=== PATIENT | male | born 1955 | race Caucasian/White ===

== ENCOUNTER → 2018-12-15 | Outpatient (CLI) | payer OTHER ==
--- NOTE | 2018-12-15 16:06 | Diagnostic Imaging Report ---
PROCEDURE: MRI lumbar spine. TECHNIQUE: Multiplanar, multisequence MRI of the lumbar spine was performed without contrast. INDICATION: Low back pain and bilateral hip pain, greater on the right. The patient also complains of tingling and numbness at the bottom of both feet. COMPARISON: No prior studies are available for comparison. FINDINGS: There is straightening of the normal lumbar lordosis. Minimal retrolisthesis of L5 on S1 is noted. There is a large amount of edema identified within the inferior one-half of the L2 vertebral body. There is some central compression of the inferior endplate of this vertebral body and findings are suggestive of an acute inferior endplate fracture. No retropulsion is seen. Remaining vertebrae show normal stature and normal marrow signal. There is significant degenerative disc disease at the L4-L5 level with complete loss of the disc space with Modic changes in the adjacent endplates. There is variable disc space narrowing and desiccation at the remaining levels. The conus is unremarkable at the L1 level. T12-L1: Central canal is patent. Neuroforamina are patent. L1-L2: Central canal is patent. Neuroforamina are patent. L2-L3: There is some ligamentous thickening. Central canal is widely patent. There is mild bilateral neuroforaminal narrowing due to endplate osteophytes. L3-L4: Central canal is patent. Mild neuroforaminal narrowing due to endplate osteophytes is seen. L4-L5: Broad-based disc/osteophyte complex does narrow the lateral recesses. Central canal is patent. Mild bilateral neuroforaminal narrowing is seen. L5-S1: Central canal is patent. There is mild bilateral neuroforaminal narrowing. Paraspinous tissues are unremarkable. IMPRESSION: 1. Generalized lumbar spondylosis with mild multilevel neuroforaminal and lateral recess narrowing, described level by level above. No central canal stenosis is seen. 2. Findings consistent with acute inferior endplate fracture involving L2 vertebral body with some central compression. No retropulsion is seen. Dictated by: Dictated on workstation # [id number]
== END ==
LOC: RAD 15:09
PROVIDERS: ATTEND Neurological Surgery
DX: M48.061 Spinal stenosis, lumbar region without neurogenic claudication (principal); M47.816 Spondylosis without myelopathy or radiculopathy, lumbar region; M48.07 Spinal stenosis, lumbosacral region
CPT/HCPCS: 72148

== ENCOUNTER 2019-01-22 08:04 | Outpatient (RCR) | payer BC, OTHER | END 2019-03-03 | disposition home or self-care (01) | PROVIDERS: ATTEND Physician Assistant | DX: M51.16 Intervertebral disc disorders with radiculopathy, lumbar region (principal) ==

== ENCOUNTER → 2019-02-10 | Outpatient (CLI) | payer OTHER ==
--- NOTE | 2019-02-10 14:56 | Diagnostic Imaging Report ---
INDICATION: Age-related screening. COMPARISON: None. FINDINGS: AP Spine L1-L4: [BMD (g/cm2): 1.496] [T-Score: 2.1] [Z-Score: 1.8] [BMD Previous: NA] [BMD % Change: NA] LT Hip Neck: [BMD (g/cm2): 0.933] [T-Score: -1.1] [Z-Score: -0.5] LT Hip Total: [BMD (g/cm2):1.005] [T-Score:-0.7] [Z-Score: -0.6] [BMD Previous: NA] [BMD % Change: NA] RT Hip Neck: [BMD (g/cm2):0.914] [T-Score:-1.2] [Z-Score:-0.6] RT Hip Total: [BMD (g/cm2):0.949] [T-score:-1.1] [Z-Score:-1.0] [BMD Previous:NA] [BMD % Change:NA] *Indicates significant change from prior examination based on 95% confidence level. World Health Organization criteria for BMD interpretation classify patients as Normal (T-score at or above -1.0), Osteopenic (T-score between -1.0 and -2.5) or Osteoporotic (T-score at or below -2.5). LIMITATIONS AND MODIFICATION: None. FRACTURE RISK (FRAX SCORE): The ten year probability of (%): Major Osteoporotic Fracture: [9.5] Hip Fracture: [1.2] IMPRESSION: 1. Osteopenia (Low bone mass). 2. Baseline examination. 3. See below National Osteoporosis Foundation guidelines on when to potentially initiate pharmacologic therapy. Based on the National Osteoporosis Foundation Guidelines, pharmacologic treatment should be initiated in any of the following, unless clinical conditions suggest otherwise: * Any patient with prior fragility fracture of the hip or vertebrae. A spine fracture indicates 5X risk for subsequent spine fracture and 2X risk for subsequent hip fracture. * Osteoporosis (T-score <-2.5). * Postmenopausal women and men age 50 and older with low bone mass/osteopenia (T-score between -1.0 and -2.5) by DXA and 10-year major osteoporotic fracture greater than 20% or a 10-year probability of hip fracture greater than 3%. These fracture risks are supplied above in the FRAX score, if applicable. * Clinician judgement and/or patient preferences may indicate treatment for people with 10-year fracture probabilities above or below these levels. Dictated by: Dictated on workstation # [id number]
== END ==
LOC: RAD 11:36
PROVIDERS: ATTEND Physician Assistant
DX: Z13.820 Encounter for screening for osteoporosis (principal); S32.020A Wedge compression fracture of second lumbar vertebra, initial encounter for closed fracture; M85.88 Other specified disorders of bone density and structure, other site
CPT/HCPCS: 77080

== ENCOUNTER → 2020-09-26 | Outpatient (CLI) | payer MEDICARE ==
--- NOTE | 2020-09-26 10:28 | Diagnostic Imaging Report ---
PROCEDURE: CT abdomen and pelvis without contrast. TECHNIQUE: Multiple contiguous axial images were obtained through the abdomen and pelvis without the use of intravenous contrast. Auto Exposure Controls were utilized during the CT exam to meet ALARA standards for radiation dose reduction. INDICATION: Hematuria. FINDINGS: The lung bases are clear. The liver is normal in size without focal lesions. The gallbladder is unremarkable. There is no biliary ductal dilatation. The spleen is normal. The pancreas and adrenal glands are unremarkable. There is a 6 mm stone in the distal right ureter just proximal to the right UVJ. There is no significant hydronephrosis. The aorta is nonaneurysmal. The bowel gas pattern is nonspecific. There is no free air. No ascites. No focal inflammatory changes. No pelvic mass, adenopathy, or free fluid. The bladder is normal. There are degenerative changes in the spine. IMPRESSION: 6 mm stone in the distal right ureter just proximal to the right UVJ without significant hydronephrosis. Diverticular disease without evidence of diverticulitis. No other acute abnormality in the abdomen or pelvis. Dictated by: Dictated on workstation # [id number]
== END ==
LOC: RAD 09:45
PROVIDERS: ATTEND Urology
DX: N20.1 Calculus of ureter (principal); R31.0 Gross hematuria; K57.30 Diverticulosis of large intestine without perforation or abscess without bleeding
CPT/HCPCS: 74176

== ENCOUNTER 2020-09-30 05:30 | Outpatient (RCR) | payer MEDICARE ==
[~2020-09-30] VITALS: Ht 193 cm; Wt 102.3 kg
== END 2020-09-30 11:51 | disposition home or self-care (01) ==
LOC: PREOP 05:30
PROVIDERS: ATTEND Urology
DX: Z01.812 Encounter for preprocedural laboratory examination (principal); N20.1 Calculus of ureter; Z20.822 Contact with and (suspected) exposure to COVID-19
CPT/HCPCS: 87635

== ENCOUNTER 2020-10-04 08:43 | Day surgery (SDC) | payer MEDICARE, OTHER ==
[2020-10-04] VITALS (9 sets, daily range): BP systolic 106–134; BP diastolic 75–88
[~2020-10-04] VITALS: Ht 193 cm; Wt 102.3 kg
[2020-10-04] MEDS ORDERED: LACTATED RINGERS 1,000 ML IV PRN (09:00)
[2020-10-04] MEDS ORDERED: cefTRIAXone FOR IV USE 1,000 MG in WATER (STERILE) FOR INJECTION 10 ML IV ONE (09:00)
[2020-10-04] MEDS ORDERED: LISI20TA26 PO (09:12)
[2020-10-04] MEDS ORDERED: ATOR10TA66 PO (09:12)
[2020-10-04] MEDS ORDERED: fentaNYL INJECTION 100 MCG/2 ML AMP ONE (09:20)
[2020-10-04] MEDS ORDERED: MIDAZOLAM 2 MG/2 ML (VERSED) VIAL ONE (09:20)
[2020-10-04] MEDS ORDERED: LIDOCAINE PF 2% 5 ML (XYLOCAINE) VIAL ONE (09:20)
[2020-10-04] MEDS ORDERED: proPOfol 200 MG/20 ML (DIPRIVAN) VIAL IV ONE (09:20)
[2020-10-04] MEDS ORDERED: ROCURONIUM 10 MG/ML 5 ML SYRINGE IV ONE (09:20)
[2020-10-04] MEDS ORDERED: ONDANSETRON 4 MG/2 ML (SDV) Z0FRAN ONE (09:20)
[2020-10-04] MEDS ORDERED: SEVOFLURANE (ULTANE) 15 ML INHAL SOLN ONE (09:20)
--- NOTE | 2020-10-04 09:23 | Progress Note-Pre Operative ---
Pre-Operative Progress Note H&P Reviewed The H&P was reviewed, patient examined and no changes noted. Date Seen by Provider: Oct 04, 2020 Time Seen by Provider: : Date H&P Reviewed: Oct 04, 2020 Time H&P Reviewed: : Pre-Operative Diagnosis: RT DISTAL URETERAL STONE ROSARIO CABRALES MD Oct 04, 2020 09:23
--- NOTE | 2020-10-04 09:31 | Progress Note-Post Operative ---
Post-Operative Progess Note Surgeon (s)/Security Intelligence Analyst (s) Surgeon ROSARIO CABRALES MD Security Intelligence Analyst: NONE Pre-Operative Diagnosis RT DISTAL URETERAL STONE Post-Operative Diagnosis SAME Procedure & Operative Findings Date of Procedure 10/04/20 Procedure Performed/Findings CYSTOSCOPY WITH RT URETERAL CATHETERIZATION AND RETROGRADE UROGRAM AND RT URETEROSCOPY Anesthesia Type GENERAL Estimated Blood Loss Estimated blood loss (mL): NONE Specimens/Packing Specimens Removed NONE Packing: NONE ROSARIO CABRALES MD Oct 04, 2020 09:31
--- NOTE | 2020-10-04 09:33 | Discharge Inst-Urology ---
Discharge Inst-Urology Reconcile Patient Problems Problems Reviewed?: Yes Final Diagnosis RT DISTAL URETERAL STONE Patient Instructions/Follow Up Plan/Assessment/Instructions Please make appointment to been seen in office in 3 weeks. Increase oral fluids for 48 hours and then as needed. Diet and Activity as tolerated. If questions or concerns contact your physician Or seek help at emergency department. ROSARIO CABRALES MD Oct 04, 2020 09:33
[2020-10-04] MEDS ORDERED: FUROSEMIDE 40 MG/4 ML INJ (LASIX) ONE (10:05)
[2020-10-04] MEDS ORDERED: KETOROLAC 30 MG/ML VIAL ONE (10:05)
[2020-10-04] MEDS ORDERED: GLYCOPYRROLATE 0.2 MG/ML (ROBINUL) 2 ML VIAL ONE (10:05)
[2020-10-04] MEDS ORDERED: NEOSTIGMINE 3 MG/3 ML VIAL ONE (10:05)
[2020-10-04] MEDS ORDERED: IOPAMIDOL 61% 30 ML (ISOVUE 300) VIAL ONE (10:29)
--- NOTE | 2020-10-04 10:46 | Anesthesia-General Post-Op ---
General Patient Condition Mental Status/LOC: Same as Preop Cardiovascular: Satisfactory Nausea/Vomiting: Absent Respiratory: Satisfactory Pain: Controlled Complications: Absent Post Op Complications Complications None Follow Up Care/Instructions Patient Instructions None needed. Anesthesia/Patient Condition Patient Condition Patient is doing well, no complaints, stable vital signs, no apparent adverse anesthesia problems. No complications reported per nursing. LUPE TORRES CRNA Oct 04, 2020 10:46
[2020-10-04] MEDS ORDERED: morphine INJ 10 MG/ML 1ML (SYR OR VIAL) IVP ONE (11:00)
[2020-10-04] MEDS ORDERED: ONDANSETRON 4 MG/2 ML (SDV) Z0FRAN IVP PRN (11:00)
--- NOTE | 2020-10-04 11:18 | Diagnostic Imaging Report ---
INDICATION: History of collecting system calculi. Pre ESWOL evaluation. COMPARISON: CT dated 09/26/2020. FINDINGS: Two frontal radiographic views of the abdomen were obtained. The small bowel loops are nondistended. There is no large collection of free intraperitoneal air. Moderate air and stool are noted scattered throughout the colon. Multiple pelvic phleboliths are noted. No unexpected radiopaque foreign bodies are seen. The osseous structures show no gross acute abnormalities. IMPRESSION: 1. Nonobstructed small bowel gas pattern. 2. Multiple pelvic phleboliths. Dictated by: Dictated on workstation # [id number]
[2020-10-04] MEDS ORDERED: NITR-65 PO (11:45)
--- NOTE | 2020-10-04 14:32 | OPERATIVE REPORT ---
DATE OF SERVICE: 10/04/2020 PREOPERATIVE DIAGNOSIS: Possible right ureteral stone. POSTOPERATIVE DIAGNOSIS: Possible right ureteral stone. OPERATION PERFORMED: Cystoscopy with right retrograde ureterogram and right ureteroscopy. SURGEON: Jose Antonio Cabrales MD ANESTHESIA: General. COMPLICATIONS: None. DESCRIPTION OF PROCEDURE: Under satisfactory general anesthesia, the patient in lithotomy position, genitalia were prepped and draped in the usual sterile fashion. Cystoscope was introduced under vision. The anterior urethra was normal. The prostate was nonobstructing. Bladder neck was open. Bladder was inspected, essentially normal with clear effluxes bilaterally. Using the foroblique lens, I dilated the right ureteral orifice intramural portion and I could see that the ureteral catheter was going pretty much medial to that calcification in the pelvis that was described as a stone on the CAT scan, so I went ahead and injected contrast and indeed the calcification was out. I removed the cystoscope, inserted the 6.9-Bengali semi-rigid ureteroscope to confirm that there is nothing inside the ureter and that calcification was indeed outside. I removed the ureteroscope, reinserted the cystoscope to empty the bladder. The patient tolerated the procedure and anesthesia well and was sent to recovery room in stable condition. Job ID: [id number] DocumentID: [id number] Dictated Date: 10/04/2020 10:45:30 Veterinary Livestock Inspector Date: 10/04/2020 14:31:22 Dictated By: JOSE ANTONIO CABRALES MD
== END 2020-10-04 12:05 | disposition home or self-care (01) ==
LOC: SDC 08:43
PROVIDERS: ATTEND Urology
DX: N39.0 Urinary tract infection, site not specified (principal); N28.89 Other specified disorders of kidney and ureter; I10 Essential (primary) hypertension; E78.5 Hyperlipidemia, unspecified; Z79.2 Long term (current) use of antibiotics; Z79.82 Long term (current) use of aspirin; Z79.899 Other long term (current) drug therapy; Z90.89 Acquired absence of other organs; Z98.890 Other specified postprocedural states; Z80.0 Family history of malignant neoplasm of digestive organs; Z82.49 Family history of ischemic heart disease and other diseases of the circulatory system; Z83.3 Family history of diabetes mellitus
CPT/HCPCS: 74018; 76000; 87081

== ENCOUNTER → 2021-05-02 | Outpatient (CLI) | payer MEDICARE, OTHER ==
[~2021-05-02] MED LIST: ATOR10TA66 PO; LISI20TA26 PO; NITR-65 PO
--- NOTE | 2021-05-02 17:46 | Diagnostic Imaging Report ---
EXAMINATION: Abdomen, one view. HISTORY: H/O STONES. COMPARISON: 10/04/2020. FINDINGS: There is a moderate amount of gas and stool throughout the colon. Nonobstructive bowel gas pattern. No radiopaque foreign body. No radiopaque calculus is seen. Stable right pelvic phlebolith. The lung bases are clear. The osseous structures are intact. IMPRESSION: Moderate stool burden without other acute abnormality in the abdomen. No visualized radiopaque stone. Dictated by: Dictated on workstation # [id number]
== END ==
LOC: RAD 15:03
PROVIDERS: ATTEND Urology
DX: Z87.442 Personal history of urinary calculi (principal)
CPT/HCPCS: 74018